=== PATIENT | female | born 1955 | race Caucasian/White ===

== ENCOUNTER → 2018-09-25 | Day surgery (SDC) | payer BC ==
[~2018-09-25] MED LIST: ATENOLOL50 MG PO; AZELASTINE137 MCG/0. INH; BENZONATATE100 MG PO; LEVOTHYROXINE50 MCG PO; LISINOPRIL2.5 MG PO; MIDAZOLAM HCL 2 MG/2 ML VIAL ONE; MONTELUKAST SOD10 MG PO; PROPOFOL IV EMULSION 10 MG/ML 50 ML VIAL ONE; VALACYCLOVIR500 MG PO; VENLAFAXINE HCL75 MG PO
[2018-09-25 07:50] VITALS: BP 114/76
== END | disposition home or self-care (01) ==
LOC: OR 05:05
PROVIDERS: ATTEND Internal Medicine Gastroenterology
DX: Z12.11 Encounter for screening for malignant neoplasm of colon (principal); K64.8 Other hemorrhoids; Z71.3 Dietary counseling and surveillance; I10 Essential (primary) hypertension; F32.9 Major depressive disorder, single episode, unspecified; R05 Cough; Z88.2 Allergy status to sulfonamides; Z01.810 Encounter for preprocedural cardiovascular examination; Z68.1 Body mass index [BMI] 19.9 or less, adult
CPT/HCPCS: 45378; 93005; J2250; J2704